=== PATIENT | female | born 1990 | race Two or more races ===

== ENCOUNTER 2019-10-21 16:00 | Emergency (ER) | payer SELFPAY ==
[~2019-10-21] VITALS: Ht 157.5 cm; Wt 63.5 kg
[2019-10-21 16:07] VITALS: BP 122/77
[2019-10-21 16:24] VITALS: BP 122/77
[2019-10-21 17:10] LABS: BASOPHILS % (AUTO) 1.2 % (0.0-2.0); HEMATOCRIT 38.6 % (37.0-47.0); HEMOGLOBIN 13.7 G/DL (12.0-16.0); LYMPHOCYTES % (AUTO) 30.3 % (20.0-45.0); MEAN CORPUSCULAR VOLUME 82 FL (80-99); MONOCYTES % (AUTO) 7.9 % (1.0-10.0); NEUTROPHILS % (AUTO) 57.6 % (45.0-75.0); PLATELET COUNT 347 K/UL (150-450); RED BLOOD COUNT 4.73 M/UL (4.20-5.40); WHITE BLOOD COUNT 9.7 K/UL (4.8-10.8)
[2019-10-21 17:23] VITALS: BP 104/72
[2019-10-21 17:30] LABS: ANION GAP 13 mmol/L (5-15); BLOOD UREA NITROGEN 8 mg/dL (7-18); CALCIUM 8.2 MG/DL (8.5-10.1); CARBON DIOXIDE 23 MMOL/L (21-32); CHLORIDE 107 MMOL/L (98-107); CREATININE 0.5 MG/DL (0.55-1.30); POTASSIUM 3.8 MMOL/L (3.5-5.1); SODIUM 143 MMOL/L (136-145)
[2019-10-21 17:48] LABS: ALANINE AMINOTRANSFERASE 30 U/L (12-78); ALBUMIN/GLOBULIN RATIO 0.8 (1.0-2.7); ALKALINE PHOSPHATASE 148 U/L (46-116); ASPARTATE AMINO TRANSFERASE 28 U/L (15-37); BILIRUBIN,TOTAL 0.2 MG/DL (0.2-1.0)
[2019-10-21 19:45] VITALS: BP 110/75
--- NOTE | 2019-10-21 21:48 | Emergency Room Report ---
History of Present Illness General Chief Complaint: Alcohol Intoxication Source: EMS Present Illness HPI 29-year-old female presents the ED for evaluation. Brought in by EMS for alcohol intoxication. Upon arrival patient agitated and combative. Told EMS that she drink alcohol today. Denies drug use. Unable to provide any additional history at this time. No signs of trauma. No other aggravating relieving factors. No other associated symptoms Allergies: Coded Allergies: UNABLE TO ASSESS (Unverified , 10/21/19) ETOH Patient History Past Medical History: none Past Surgical History: none Pertinent Family History: none Social History: Denies: smoking, alcohol use, drug use Now: No Immunizations: UTD Reviewed Nursing Documentation: PMH: Agreed; PSxH: Agreed Nursing Documentation-PMH Past Medical History Deferred: Pt Cognitively Impaired Past Medical History: Deferred Review of Systems All Other Systems: limited Physical Exam Vital Signs Date Time Temp Pulse Resp B/P (MAP) Pulse Ox O2 Delivery O2 Flow Rate FiO2 10/21/19 16:07 107 17 122/77 98 Room Air 10/21/19 19:45 98.4 Sp02 EP Interpretation: reviewed, normal General Appearance: other - intoxicated Head: normocephalic Eyes: bilateral eye normal inspection, bilateral eye PERRL ENT: normal ENT inspection Neck: normal inspection Respiratory: chest non-tender, lungs clear, normal breath sounds, speaking full sentences Cardiovascular #1: regular rate, rhythm, no edema Gastrointestinal: normal bowel sounds, non tender, soft, non-distended, no guarding, no rebound Rectal: deferred Genitourinary: no CVA tenderness Musculoskeletal: normal inspection Neurologic: other - intoxicated Psychiatric: other - intoxicated Skin: no rash Lymphatic: normal inspection Medical Decision Making Diagnostic Impression: Primary Impression: Acute alcoholic intoxication Qualified Codes: F10.920 - Alcohol use, unspecified with intoxication, uncomplicated ER Course Hospital Course 29-year-old F presents to ED with altered mental status. Differential diagnoses include: Psychosis, EtOH, drug abuse Clinical course patient placed on stretcher. On case monitor. After initial history and physical ordered labs, IV fluids Labs reviewed-electrolytes okay, no leukocytosis, hemoglobin/hematocrit stable, ETOH elevated Patient given IV fluids. Observed on case monitor with stable vitals. Protecting airway. Is now alert oriented x3. Walking with steady gait. Will discharge to home. safe for discharge. I will provide referrals i. I feel this is a highly complex case requiring extensive working including EKG/Rhythm strip, Xray/CT/US, Blood/urine lab work, repeat exams while in ED, and administration of strong opiates/narcotics for pain control, admission to hospital or close patient follow up. Diagnosis - acute alcohol intoxication Stable and discharged to home. Followup with PMD. Return to ED if symptoms recur or worsen Labs Test 10/21/19 16:34 White Blood Count 9.7 K/UL (4.8-10.8) Red Blood Count 4.73 M/UL (4.20-5.40) Hemoglobin 13.7 G/DL (12.0-16.0) Hematocrit 38.6 % (37.0-47.0) Mean Corpuscular Volume 82 FL (80-99) Mean Corpuscular Hemoglobin 28.9 PG (27.0-31.0) Mean Corpuscular Hemoglobin Concent 35.4 G/DL (32.0-36.0) Red Cell Distribution Width 12.0 % (11.6-14.8) Platelet Count 347 K/UL (150-450) Mean Platelet Volume 7.1 FL (6.5-10.1) Neutrophils (%) (Auto) 57.6 % (45.0-75.0) Lymphocytes (%) (Auto) 30.3 % (20.0-45.0) Monocytes (%) (Auto) 7.9 % (1.0-10.0) Eosinophils (%) (Auto) 3.0 % (0.0-3.0) Basophils (%) (Auto) 1.2 % (0.0-2.0) Sodium Level 143 MMOL/L (136-145) Potassium Level 3.8 MMOL/L (3.5-5.1) Chloride Level 107 MMOL/L (98-107) Carbon Dioxide Level 23 MMOL/L (21-32) Anion Gap 13 mmol/L (5-15) Blood Urea Nitrogen 8 mg/dL (7-18) Creatinine 0.5 MG/DL (0.55-1.30) Estimat Glomerular Filtration Rate > 60 mL/min (>60) Glucose Level 107 MG/DL (74-106) Calcium Level 8.2 MG/DL (8.5-10.1) Total Bilirubin 0.2 MG/DL (0.2-1.0) Aspartate Amino Transf (AST/SGOT) 28 U/L (15-37) Alanine Aminotransferase (ALT/SGPT) 30 U/L (12-78) Alkaline Phosphatase 148 U/L (46-116) Total Protein 8.8 G/DL (6.4-8.2) Albumin 4.0 G/DL (3.4-5.0) Globulin 4.8 g/dL Albumin/Globulin Ratio 0.8 (1.0-2.7) Salicylates Level 0.5 ug/mL (2.8-20) Acetaminophen Level < 2 MCG/ML (10-30) Serum Alcohol 342 mg/dL Last Vital Signs Date Time Temp Pulse Resp B/P (MAP) Pulse Ox O2 Delivery O2 Flow Rate FiO2 10/21/19 19:45 98.4 90 18 110/75 98 Room Air Status: improved Disposition: HOME, SELF-CARE Condition: Stable Referrals: Wali Valero [facility] Patient Instructions: Alcohol Intoxication Espinoza Baldwin MD Oct 21, 2019 21:48
== END 2019-10-21 19:45 | disposition home or self-care (01) ==
LOC: EDBD 16:00 → EMR 16:42
DX: F10.129 Alcohol abuse with intoxication, unspecified (principal)
CPT/HCPCS: 80053; 85025; 96360; 99284; G0480